=== PATIENT | female | born 1950 | race Asian ===

== ENCOUNTER 2016-11-17 06:43 | Emergency (ER) | payer MEDICARE, MEDICAID ==
[~2016-11-17] VITALS: Ht 157.5 cm; Wt 63.0 kg
[2016-11-17] MEDS ORDERED: ONDANSETRON 2MG/ML, 2ML ONE (07:18)
[2016-11-17] MEDS ORDERED: FAMOTIDINE 20 MG/2 ML ONE (07:18)
[2016-11-17] MEDS ORDERED: ONDANSETRON 2MG/ML, 2ML IVPush ONE (07:30)
[2016-11-17] MEDS ORDERED: FAMOTIDINE 20 MG/2 ML IVP ONE (07:30)
[2016-11-17] MEDS ORDERED: SODIUM CHLORIDE FLUSH 10ML SYR IVF ONE (07:30)
[2016-11-17] MEDS ORDERED: SODIUM CHLORIDE 0.9% 1,000ML IVBOLUS ONE (07:30)
[2016-11-17 07:41] LABS: HEMATOCRIT 38.7 % (34.6-47.8); HEMOGLOBIN 12.3 g/dL (11.7-16.4); WHITE BLOOD COUNT 5.4 x10^3/uL (3.4-10)
[2016-11-17 07:56] LABS: ASPARTATE AMINO TRANSFERASE 21 U/L (15-37); BLOOD UREA NITROGEN 11 mg/dL (7-18)
[2016-11-17 11:16] VITALS: BP 115/58
== END 2016-11-17 12:32 | disposition home or self-care (01) ==
LOC: ED 12:15
DX: E86.0 Dehydration (principal); K52.9 Noninfective gastroenteritis and colitis, unspecified; E87.6 Hypokalemia; E87.1 Hypo-osmolality and hyponatremia
CPT/HCPCS: 36415; 80053; 81003; 83690; 85025; 96361; 96374; 96375; 99284; J2405; J7030; S0028

== ENCOUNTER → 2017-01-07 | Outpatient (CLI) | payer MEDICARE, MEDICAID | END | disposition home or self-care (01) | LOC: CFH 07:21 | PROVIDERS: ATTEND Family Medicine | DX: J32.0 Chronic maxillary sinusitis (principal); H70.91 Unspecified mastoiditis, right ear; R41.9 Unspecified symptoms and signs involving cognitive functions and awareness | CPT/HCPCS: 70551 ==